=== PATIENT | female | born 1960 | race Caucasian/White ===

== ENCOUNTER 2022-05-17 14:34 | Outpatient (CLI) | payer OTHER, SELFPAY | END 2022-05-17 14:35 | disposition home or self-care (01) | PROVIDERS: PCP Family Medicine; Visit Provider Family Medicine | DX: Z00.00 Encounter for general adult medical examination without abnormal findings (principal); E66.9 Obesity, unspecified; F41.9 Anxiety disorder, unspecified | CPT/HCPCS: 80053; 80061; 84443 ==

== ENCOUNTER 2022-05-25 12:02 | Outpatient (CLI) | payer OTHER, SELFPAY | END 2022-05-25 12:03 | disposition home or self-care (01) | PROVIDERS: PCP Family Medicine; Referring Provider Family Medicine; Visit Provider Nurse Practitioner Family | DX: R30.0 Dysuria (principal); N30.00 Acute cystitis without hematuria | CPT/HCPCS: 87086 ==

== ENCOUNTER 2023-05-13 11:01 | Outpatient (CLI) | payer OTHER, SELFPAY | END 2023-05-13 11:02 | disposition home or self-care (01) | LOC: NFLDREF 05-22 12:36 | PROVIDERS: PCP Family Medicine; Referring Provider Family Medicine; Visit Provider Family Medicine | DX: R39.89 Other symptoms and signs involving the genitourinary system (principal); N39.0 Urinary tract infection, site not specified; N89.8 Other specified noninflammatory disorders of vagina | CPT/HCPCS: 87086; 87186 ==

== ENCOUNTER 2024-06-08 20:18 | Emergency (ER) | payer OTHER, SELFPAY ==
--- NOTE | 2024-06-08 20:19 | ED.GENADULT ---
HPI - General Adult General Chief complaint: Fall/Minor Trauma Stated complaint: Tripped and fell, hurt nose Time Seen by Provider: 06/08/24 20:18 History of Present Illness HPI narrative: tripped over dog in street and landed on L hand, L knee and nose. complaints of nose pain and swelling. on eliquis. no LOC . denies CP/SOB or n/v. denies vision changes . 64-year-old woman presenting to the emergency department with injury to her nose following trip and fall event. Apparently is babysitting her kids dogs 1 of whom does not get out of the way very well. Did stepped out to way of to some neighborhood children and ultimately tripped over the dog landing on her left knee left wrist and her face. She think she bounced. There was no loss of consciousness. Denies neck or back pain. No alcohol is involved. No loss of consciousness. Ambulating without difficulty. She did note a good deal of blood in the road she presume secondary to Eliquis. Says she has not historically liked her nose but did not wish this upon it. She is concerned it might be fractured. Says her teeth feel little bit sore in the front. Related Data Home Medications ?Medication ?Instructions ?Recorded ?Confirmed citalopram 20 mg tablet 20 mg PO QDAY 05/17/22 06/08/24 apixaban 5 mg tablet (Eliquis) 5 mg PO BID 06/08/24 06/08/24 duloxetine 40 mg capsule,delayed 40 mg PO DAILY 06/08/24 06/08/24 release Allergies Allergy/AdvReac Type Severity Reaction Status Date / Time Iodinated Diagnostic Agents Allergy Severe hot, Uncoded 05/13/23 11:09 swelling, headache, vomit Review of Systems Status of ROS: Reports: 6 or more systems reviewed and unremarkable except as noted in History and below [facility] Medical History Yeast dermatitis ?B37.2 - Candidiasis of skin and nail (ICD-10) Left otitis media ?H66.92 - Otitis media, unspecified, left ear (ICD-10) Dysuria ?R30.0 - Dysuria (ICD-10) Partial small bowel obstruction ?K56.600 - Partial intestinal obstruction, unspecified as to cause (ICD-10) History of syncope ?Z87.898 - Personal history of other specified conditions (ICD-10) History of deep venous thrombosis (2016) ?Z86.718 - Personal history of other venous thrombosis and embolism (ICD-10) Surgical History History of tonsillectomy ?Z90.89 - Acquired absence of other organs (ICD-10) History of hysterectomy ?Z90.710 - Acquired absence of both cervix and uterus (ICD-10) Family History Mother Stroke Social History Narrative: Does not use illicit drugs Nonsmoker Occasional alcohol consumption Smoking Status: Never smoker How often do you have a drink containing alcohol: never AUDIT-C Alcohol total score: 0 Non-prescribed substance use: denies use Exam Narrative: Exam Narrative: Very pleasant. NAD. Clearly her nose is bleeding over the bridge of the nose it appears slightly swollen and oozing blood. There appears to be a leftward deviation just below the bridge of the nose. No septal hematoma appreciated. No active bleeding or evidence of bleeding from inside the nose. Dentition looks to be intact. Does have a bridge behind the upper 2 central incisors. No bleeding at the gumline appreciated. No fluid external ears. Neck is supple nontender. Back nontender. Moving all extremities out difficulty. Left knee has some stippling without abrasion over the anterior knee but she is flexing extending without difficulty. There is bruising at the base of the left palm. No scaphoid/snuffbox tenderness. Has good water pump servicer strength here. Small abrasion on the 5th finger of the left hand. Cranial nerves 2-12 intact. Pupils are 3 - 4 mm and equal. GCS 15. Const: Vital Signs, click to edit/add: Vital Signs - 24 hr 06/08/24 20:23 Temperature 98.3 F Pulse Rate [Pulse Oximeter] 96 Respiratory Rate 16 Blood Pressure [Ri ght Upper Arm] 148/76 H Pulse Oximetry 98 Oxygen Delivery Me thod Room Air Documenting provider has reviewed patient's vital signs: yes Course Vital Signs Vital signs: Initial Vital Signs Temperature 98.3 F 06/08/24 20:23 Temperature Source Temporal Artery Scan 06/08/24 20:23 Pulse Rate 96 06/08/24 20:23 Respiratory Rate 16 06/08/24 20:23 Blood Pressure 148/76 H 06/08/24 20:23 Blood Pressure Mean 100 06/08/24 20:23 Blood Pressure Position Sitting 06/08/24 20:23 Pulse Oximetry 98 06/08/24 20:23 Oxygen Delivery Method Room Air 06/08/24 20:23 Vital Signs Temperature 98.3 F 06/08/24 20:23 Pulse Rate 96 06/08/24 20:23 Respiratory Rate 16 06/08/24 20:23 Blood Pressure 148/76 H 06/08/24 20:23 Pulse Oximetry 98 06/08/24 20:23 Oxygen Delivery Method Room Air 06/08/24 20:23 Temperature 98.3 F 06/08/24 20:23 Pulse Rate 70 06/08/24 21:51 Respiratory Rate 16 06/08/24 21:51 Blood Pressure 127/72 06/08/24 21:51 Pulse Oximetry 98 06/08/24 21:51 Oxygen Delivery Method Room Air 06/08/24 20:23 Medications Administered Medications: Discontinued Medications Generic Name Dose Route Start Last Admin Trade Name Freq PRN Reason Stop Dose Admin Ibuprofen 600 mg 06/08/24 20:39 06/08/24 20:47 Ibuprofen 400 Mg Tablet PO 06/08/24 20:40 600 mg ONCE ONE Administration Medical Decision Making MDM Narrative Medical decision making narrative: If was not on Eliquis I think could avoid imaging beyond maybe basic nasal bone x-rays. In this case would be prudent to CT head and will do facial bones/sinuses at the same time. Will give singular dose of ibuprofen. Ice pack. By nexus criteria does not need neck imaging. By my independent review CT of head and CT of face look to be without any acute abnormality beyond multiple fractures of the nasal bones, comminuted with some rightward displacement INDICATION: Fall, nasal bone trauma. TECHNIQUE: Noncontrast CT of the head with multiplanar reconstruction utilizing bone and soft tissue algorithms. COMPARISON: None available. FINDINGS: No acute intracranial hemorrhage. The cervantes-white matter interface is preserved. The ventricles are normal in size. No abnormal extra-axial fluid collection is identified. Multiple minimally displaced nasal bone fractures. Symmetric globes. The imaged paranasal sinuses and mastoid air cells are clear. IMPRESSION: 1. No acute intracranial abnormality. 2. Multiple minimally displaced nasal bone fractures. Please note that all CT scans at this facility use dose modulation, iterative reconstruction, and/or weight-based dosing when appropriate to reduce radiation dose to as low as reasonably achievable. Dictated by Damon Espino MD @ 06/08/2024 9:42:40 PM Indication: Fall. Technique: Noncontrast CT of the facial bones with multiplanar reconstruction utilizing bone and soft tissue algorithms. Comparison: None available. Findings: Multiple minimally displaced nasal bone fractures. Symmetric globes without evidence of penetrating injury. Small left frontal sinus osteoma. Otherwise, clear paranasal sinuses. The imaged upper cervical soft tissues appear within limits. Intracranial findings are reported on concurrently performed CT head. Impression: Multiple minimally displaced nasal bone fractures. Please note that all CT scans at this facility use dose modulation, iterative reconstruction, and/or weight-based dosing when appropriate to reduce radiation dose to as low as reasonably achievable. Dictated by Damon Espino MD @ 06/08/2024 9:45:30 PM Discussed potential improvement/correction of this mild displacement. No saddle deformity, no impingement on breathing but I think cosmetically would be beneficial. She agrees to proceed with some reduction of these fractures. I apply pressure to the bridge of the nose and leftward pressure does result in improved alignment. Tolerated this well. Sienna noted improvement in how it felt. Tolerated this well. Has not demonstrated signs of concussion here. But may need to monitor for this. See patient discharge plan for further discussion Yes, I would say your nose looks a little straighter now. Would ice your nose a few times daily over the next few days. Since opiates have caused headaches for you before, as discussed, perhaps tramadol would be better tolerated. Prescribing some from [facility]. After icing and a little time, perhaps in a week and half to 2 weeks, consider follow up with Dr. Mondragon. Medical Records Medical records reviewed: Yes I reviewed the patient's medical records Discharge Plan Discharge Clinical Impression: Fracture of nasal bone, Abrasion, Closed head injury Patient Disposition: Home w/ Parent or Adult Condition: Improved Additional Instructions: Yes, I would say your nose looks a little straighter now. Would ice your nose a few times daily over the next few days. Since opiates have caused headaches for you before, as discussed, perhaps tramadol would be better tolerated. Prescribing some from [facility]. After icing and a little time, perhaps in a week and half to 2 weeks, consider follow up with Dr. Mondragon. Prescriptions: No Action citalopram 20 mg tablet 20 mg PO QDAY Eliquis 5 mg tablet 5 mg PO BID duloxetine 40 mg capsule,delayed release(DR/EC) 40 mg PO DAILY Follow Up/Referrals: Provider,Not a Local [Primary Care Provider] - Stand Alone Forms: Are You a Human Info Instructions
--- OUTSIDE RECORDS SUMMARY | 2024-06-08 20:20 | XMS_ITS | Encounter Summary ---
Author Organization [facility] Address [address] [place] [phone] Care Team Providers Care Security Officer Name Role Phone Hanane Childers APRN, C.N.P., D.N.P. Primary Care Provider Encounter Details Date Type Department Care Team (Late st Contact Info) Description 05/14/2024 10:30 AM CONTINUOUS DRIER OPERATOR E-Visit [facility] [address] [place] [phone] Caty Cornelius APRN, C.N.P. [address] [place] [phone] Express Care Online for Sinus Symptoms (sinusitis) Social History Tobacco Use Types Packs/Day Years Used Date Smoking Tobacco: Never Smokeless Tobacco: Never Alcohol Use Standard Drinks/Week Comments Not Currently 0 (1 standard drink = 0.6 oz pure alcohol) 1 a month at most. Very occasional [facility] Utilities Answer Date Recorded In the past 12 months has e [employer], gas, oil, or water [employer] threatened to shut off services in your home? No 03/28/2023 Humiliation, Afraid, Rape, and Kick questionnair e Answer Date Recorded Within the last year, have y ou been afraid of your partner or ex-partner? No 03/23/2022 Within the last year, have y ou been humiliated or emotionally abused in other ways by your partner or ex-partner? No Within the last year, have y ou been kicked, hit, slapped, or otherwise physically hurt by your partner or ex-partner? No 03/23/2022 Within the last year, have y ou been raped or forced to have any kind of sexual activity by your partner or ex-partner? No 03/23/2022 Social Connection and Isolat ion Panel [NHANES] Answer Date Recorded In a typical week, how many times do you talk on the phone with family, friends, or neighbors? More than three times a week 03/23/2022 How often do you get togethe r with friends or relatives? Once a week 03/23/2022 How often do you attend chur or voodoo services? More than 4 times per year 03/23/2022 Do you belong to any clubs o r organizations such as latter-day groups, unions, fraternal or athletic groups, or school groups? Yes 03/23/2022 How often do you attend meet ings of the clubs or organizations you belong to? More than 4 times per year 03/23/2022 Are you , , di vorced, , never , or living with a partner? 03/23/2022 AUDIT-C Answer Date Recorded Q1: How often do you have a drink containing alc ohol? Monthly or less 03/23/2022 Q2: How many drinks containi ng alcohol do you have on a typical day when you are drinking? 1 or 2 03/23/2022 Q3: How often do you have si x or more drinks on one occasion? Never 03/23/2022 Overall Financial Resource Strain (CARDIA) Answe r Date Recorded How hard is it for you to pa y for the very basics like food, housing, medical care, and heating? Not hard at all 03/23/2022 PHQ-2 Answer Date Recorded PHQ-2 Score 0 04/08/2024 [facility] Occupat ional Health - Occupational Stress Questionnaire Answer Date Recorded Do you feel stress - tense, restless, nervous, or anxious, or unable to sleep at night because your mind is troubled all the time - these days? Only a little 03/23/2022 Exercise Vital Sign Answer Date Recorde d On average, how many days pe r week do you engage in moderate to strenuous exercise (like a brisk walk)? 2 days 03/28/2023 On average, how many minutes do you engage in exercise at this level? 20 min 03/28/2023 Hunger Vital Sign Answer Date Recorded Within the past 12 months, y ou worried that your food would run out before you got the money to buy more. Never true 03/28/19 24 Within the past 12 months, t he food you bought just didn't last and you didn't have money to get more. Never true 03/28/2023 PRAPARE - Transportation Answer Date Re corded In the past 12 months, has l ack of transportation kept you from medical appointments or from getting medications? No 03/18 In the past 12 months, has l ack of transportation kept you from meetings, work, or from getting things needed for daily living? No 03/28/2023 Depression Answer Date Recor ded PHQ-9 Total Score (max 27) 0 04/08 Nutrition Answer Date Recorded On average, how many serving s of fruits and vegetables do you eat per day (serving size is equal to 1 cup or approximately the size of a tennis ball)? 3-5 03/28/2023 Dental Answer Date Recorded Dental: Regular Dentist Yes 03/23/19 Employment Answer Date Recorded Employment status Employed and actively working without restrictions 03/28/2023 Housing Stability Answer Date Recorded What is your living situation today? [facility] 03/28/2023 Education Answer Date Recorded What is the highest level of school you have completed or the highest degree you have received? Master's degree (e.g., MA, MS, Gold, MEd, PHOTOGRAPHIC EDITOR, [employer]) 11/11/2018 Comments No Sex and Gender Information Value Date Recorded Sex Assigned at Female 08/28/2017 2:20 PM CDT Legal Sex Female 1:22 PM CONTINUOUS DRIER OPERATOR Gender Identity Female 08/28/2017 2:20 PM CDT Sexual Orientation Straight 08/28/2017 2: 20 PM CDT documented as of this encounter Plan of Treatment Upcoming Encounters Date Type Department Care Team (Late st Contact Info) Description 07/24/2024 2:30 PM CDT Procedure visit Division of [facility], [facility], in [place], [place] [address] [place] [phone] Lenard Brock M.D. [address] [place] [phone] documented as of this encounter Visit Diagnoses Diagnosis Sinusitis Acute- Primary documented in this encounter Additional Health Concerns Assessment Noted Time PHQ-9 Depression Total Score: 0 04/08/19 25 8:35 PM CONTINUOUS DRIER OPERATOR documented as of this encounter Care Teams Security Officer Relationship Specialty Start Date End Date Hanane Childers APRN, C.N.P., D.N.P. [address] [place] [phone] PCP - General Family Medicine 10/19/19 documented as of this encounter
--- OUTSIDE RECORDS SUMMARY | 2024-06-08 20:20 | XMS_ITS | Encounter Summary ---
Author Organization [facility] Address [address] [place] [address] Care Team Providers Care Film Developing Machine Operator Name Role Phone Hanane Childers APRN, C.N.P., D.N.P. Primary Care Provider Encounter Details Date Type Department Care Team (Late st Contact Info) Description 04/29/2018 [facility] [address] [place] [address] Ja Mondragon M.D. [address] [place] [phone] Reflux Esophageal (Primary Dx) Social History Tobacco Use Types Packs/Day Years Used Date Smoking Tobacco: Never Smokeless Tobacco: Never Comments No Sex and Gender Information Value Date Recorded Sex Assigned at Female 08/28/2017 2:20 PM CDT Legal Sex Female 1:22 PM ADOPTION AGENT Gender Identity Female 08/28/2017 2:20 PM CDT Sexual Orientation Straight 08/28/2017 2: 20 PM CDT documented as of this encounter Plan of Treatment Upcoming Encounters Date Type Department Care Team (Late st Contact Info) Description 07/24/2024 2:30 PM CDT Procedure visit Division of [facility], [facility], in [place], [place] [address] [place] [phone] Lenard Brock M.D. [address] [place] [phone] documented as of this encounter Visit Diagnoses Diagnosis Reflux Esophageal- Primary documented in this encounter Additional Health Concerns Infection Onset Date Last Indicated Resolved Time COVID19 Pending 02/03/2020 02/03/2020 02/04/2020 8 :55 AM ADOPTION AGENT COVID19 Pending 02/11/2020 02/11/2020 02/12/2020 5 :06 PM ADOPTION AGENT Assessment Noted Time PHQ-9 Depression Total Score: 2 12/22/19 17 11:01 AM CDT documented as of this encounter Care Teams Film Developing Machine Operator Relationship Specialty Start Date End Date Hanane Childers APRN, C.N.P., D.N.P. [address] [place] [phone] PCP - General Family Medicine 10/19/19 documented as of this encounter
--- OUTSIDE RECORDS SUMMARY | 2024-06-08 20:20 | XMS_ITS | Encounter Summary ---
Author Organization [facility] Address [address] [place] [address] Care Team Providers Care Ux Architect Name Role Phone Hanane Childers APRN, C.N.P., D.N.P. Primary Care Provider Encounter Details Date Type Department Care Team (Late st Contact Info) Description 04/04/2004 Historical Ophthalmology [facility] Matt Ceballos M.D. [address] [phone] Social History Tobacco Use Types Packs/Day Years Used Date Smoking Tobacco: Never Assessed Comments Unknown Sex and Gender Information Value Date Recorded Sex Assigned at Female 08/28/2017 2:20 PM CDT Legal Sex Female 1:22 PM ELECTRIC MOTOR MECHANIC Gender Identity Female 08/28/2017 2:20 PM CDT Sexual Orientation Straight 08/28/2017 2: 20 PM CDT documented as of this encounter Progress Notes * Matt Ceballos M.D. - 04/04/2004 12:00 AM [facility]ST Eye General CHIEF COMPLAINT Red and puffy right upper lid HISTORY OF PRESENT ILLNESS Saturday morning pt had stye like infection. It was red and puffy right upper lid for 2 days. Pain right eye. No discharge. Some blurred vision. Was seen at [facility] and told it was a tear duct infection. She tried warm packs intermittently for one day and actually improved. IMPRESSION / REPORT / PLAN #1 Hordeolum, left upper lid #2 ? early preseptal cellulitis, left upper There is possible early preseptal cellulitis, however there is no canalicular involvement. Plan: recommend warm compresses at least tid and more if possilbe. Will give ees dov bid to eye lid. Augmentin 500 mg po tid x 10 days. Use artificial tears prn. Will see pt back in 3 days to ensure improvement. DIAGNOSIS #1 Hordeolum, left upper lid #2 ? early preseptal cellulitis, left upper CDM Reports - EYEGEN Id: [id number] Status: Fnl documented in this encounter Plan of Treatment Upcoming Encounters Date Type Department Care Team (Late st Contact Info) Description 07/24/2024 2:30 PM CDT Procedure visit Division of [facility] Internal [facility], [facility], in [place], [place] [address] [place] [phone] Lneard Brock M.D. [address] [place] [phone] documented as of this encounter Visit Diagnoses Not on filedocumented in this encounter Additional Health Concerns Infection Onset Date Last Indicated Resolved Time COVID19 Pending 02/03/2020 02/03/2020 02/04/2020 8 :55 AM ELECTRIC MOTOR MECHANIC COVID19 Pending 02/11/2020 02/11/2020 02/12/2020 5 :06 PM ELECTRIC MOTOR MECHANIC documented as of this encounter Care Teams Ux Architect Relationship Specialty Start Date End Date Hanane Childers APRN, C.N.P., D.N.P. [address] [place] [phone] PCP - General Family Medicine 10/19/19 documented as of this encounter
--- OUTSIDE RECORDS SUMMARY | 2024-06-08 20:20 | XMS_ITS | Clinical Summary ---
Author Organization [facility] Address [address] [place] [address] Care Team Providers Care Musical Instrument Supervisor Name Role Phone Hanane Childers APRN, C.N.P., D.N.P. Primary Care Provider Source Comments Patient records contain information from all sites at [facility]. For routine questions regarding patient records, call [phone] during business hours, M-F 8:00 AM - 5:00 PM Central Time. Record requests for emergency care only can be directed to [phone] at any time.[facility] Allergies Active Allergy Reactions Criticality Noted Date Comments Adhesive Tape-Silicones Other (see comments) Sensitivity Iodinated Contrast Media Nausea And Vomiting Medications * This document contains information received from the source organization and may not represent a complete record from that organization. VITAMIN B COMPLEX ORAL Take 1 tablet by mouth every evening. 3 Active estradioL (ESTRACE) 0.1 mg/g (0.01%) vaginal cream Insert 2 g into the vagina at bedtime 2 (two) times a week. 85 g 3 11/27/2023 6:09 PM CDT 4 Active apixaban (ELIQUIS) 5 mg tablet Take 1 tablet (5 mg total) by mouth 2 (two) times a day. 180 tablet 3 06/05/2024 8:04 AM CDT 4 09/04/19 25 Active DME Gradient compression garments & suppliesIndicati ons:Thrombosis Deep Vein Personal History DME Order 2 Unspecified 3 4 Active busPIRone (BuSpar) 5 mg tabletIndication s:Depression Take 2 tablets (10 mg total) by mouth 2 (two) times a day. 360 tablet 3 06/05/2024 8:04 AM CDT 4 Active DULoxetine (Cymbalta) 40 mg capsule,delayed release(DR/EC) DR capsuleIndicatio ns:Depression Take 1 capsule (40 mg total) by mouth daily. 90 capsule 3 04/10/2024 11:38 AM LAND AGENT 5 Active amoxicillin-pot clavulanate (Augmentin) 875-125 mg per tabletIndication s:Sinusitis Acute Take 1 tablet by mouth 2 (two) times a day for 5 days. 10 tablet 5 05/20/19 25 Active Problems Problem Noted Date Diagnosed Date Hypotension Orthostatic 01/30/2024 Overweight Body Mass Index 25-29.9 Adult 024 Assessment & Plan (04/09/2024 10:20 AM LAND AGENT): General Health Maintenance Positive lifestyle changes including portion control, reducing caloric intake from beverages, and incorporating physical activity. Joined a wellness physical activity class focusing on long-term sustainable weight loss and overall health improvement. Discussed benefits of smaller portion sizes and reducing high-calorie beverages. - Continue portion control and dietary modifications - Continue participation in wellness physical activity class - Encourage regular exercise and cardiovascular activities Depression 11/14/2023 Assessment & Plan (04/09/2024 10:20 AM LAND AGENT): Major Depressive Disorder Significant improvement in mood and emotional regulation since adjusting Cymbalta to 40 mg in the morning. Less irritation, stress, and renewed sense of paco. No adverse effects noted, improved sleep quality. Continued use of Buspar with minor adjustments to avoid nighttime doses to prevent sleep disturbances. Discussed the importance of vacations for mental health benefits. Missing one or two doses of Buspar occasionally will not cause harm. - Continue Cymbalta 40 mg in the morning - Continue Buspar with current dosing schedule (morning, lunch, and early evening) - Switch Cymbalta prescription to 90-day supply with mail order - Advise to reach out if there are any major changes in symptoms Orders: Family Medicine office visit (clinic) DULoxetine (Cymbalta) 40 mg capsule,delayed release(DR/EC) DR capsule; Take 1 capsule (40 mg total) by mouth daily. Polyp Colon 05/27/2023 Overview (05/27/2023): 05/2023 #1 Three greater than 1-cm sessile serrated adenomas resected from the right colon in September of 2022 with a negative followup exam in May of 2023 PLAN: Given that she had 3 significant sessile serrated adenomas within the right colon, one must question if she is evolving into serrated polyposis syndrome. She does not fulfill criterion at this time since she has only had 3 polyps, but it is worrisome that all of these were over a centimeter in size. Because of that, I think a followup examination in 2 years would be recommended to reassess the colonic surface. At that time, if 2 or more sessile serrated adenomas were noted irregardless of size, then she would be followed as if she had serrated polyposis syndrome. If she does not reveal significant neoplasia at that time, then backing her out to a period of 3 years would seem reasonable. (Per GI econsult) Syncope 08/23/2017 Overview (08/23/2017): Added automatically from request for surgery [id number] Thrombosis Deep Vein Personal History 05/24/2015 Atrial Fibrillation Personal History 02/14/2015 Mutation Factor V Leiden Heterozygous 12/16/2012 Encounters Date Type Department Care Team Description 05/14/2024 10:30 AM LAND AGENT E-Visit [facility] [address] [place] [address] Caty Cornelius APRN, C.N.P. Express Care Online for Sinus Symptoms (sinusitis) 04/09/2024 10:00 AM LAND AGENT Telemedicine Department of Family Medicine, [facility], in [place], [place] [address] [place] [address] Brody Martin M.D., M.S. Overweight Body Mass Index 25-29.9 Adult (Primary Dx); Depression from Last 3 Months Immunizations Immunization Administration Dates Next Due DTP 10/16/1966, 1,1960,1960 H1N1 Inj 02/04/2009 HepB Adult 08/16/1994,04/18/1994,02/15/1994 HepB, Unspecified 08/16/1994,04/18/1994,02/15/19 94 Influenza Split Preservative Free ID 12/20/2011, 12/15/2010 Influenza, Seasonal, Injectable 01/23/20 06,01/18/2005,01/18/2003,2001,01/22/2001 OPV 1960,1960 Polio, Unspecified 1960,1960 RZV (SHINGRIX) 09/26/2023,05/28/2023 SARS-COV-2 (COVID-19) - MODE RNA (12 YEARS AND OLDER) Fall Seasonal 01/02/2024,05/28/2023(Deferred: Patient decision) SARS-COV-2 (COVID-19) - MODERNA(Discontinued) 02/22/2021,06/17/2020,05/18/2020 Td (Adult), adsorbed 09/21/2002,03/18/1991 Td Preservative Free (TENIVA C, DECAVAC) 03/01/2017 Tdap 01/22/2006 influenza trivalent vaccine (6 months and older)(PF) 01/02/2024,02/01/2010,02/04/2009 influenza vaccine quad (FLUZONE/FLUARIX) (6 months and older)(PF) 01/01/2023,12/21/2021,01/03/2021,2019,01/19/2019,01/08/2018,01/03/2015,1 Family History Medical History Relation Name Comments Liver disease Father Brennan Mauro Age 81 Arthritis Mother Sandy Zunilda Hypertension Mother Sandy Mauro Rheum arthritis Mother Sandy Mauro Transient ischemic attack Mother Sandy Mauro At age 75 Breast cancer Paternal Grandmother Silvina Zunilda Age 6 5 Breast cancer Sister Ryann Taveras Age 64 Relation Name Status Comments Father Brennan [place] Mother Sandy [place] Paternal Grandmother Silvina [place] Sister Ryann Taveras Social History Tobacco Use Types Packs/Day Years Used Date Smoking Tobacco: Never Smokeless Tobacco: Never Tobacco Cessation:Counseling Given: Not Answered Alcohol Use Standard Drinks/Week Comments Not Currently 0 (1 standard drink = 0.6 oz pure alcohol) 1 a month at most. Very occasional [facility] Utilities Answer Date Recorded In the past 12 months has e [employer], gas, oil, or water [employer] threatened to shut off services in your [...] week 03/23/2022 How often do you attend [facility] or hinduism services? More than 4 times per year 03/23/2022 Do you belong to any clubs o r organizations such as jew groups, unions, fraternal or athletic groups, or [...] Answer Date Recorded PHQ-2 Score 0 04/08/2024 [facility] of Occupat ional [facility] - Occupational Stress Questionnaire Answer Date Recorded [...] your living situation today? I have a [place] place to live 03/28/2023 Education Answer Date Recorded What is the highest level of school you have completed or the highest degree you have received? Master's degree (e.g., MA, MS, Gold, MEd, [employer], [employer]) 11/11/2018 Comments No Sex and Gender Information Value Date Recorded Sex Assigned at Female 08/28/2017 2:20 PM CDT Legal Sex Female 1:22 PM LAND AGENT Gender Identity Female 08/28/2017 2:20 PM CDT Sexual Orientation Straight 08/28/2017 2: 20 PM CDT Last Filed Vital Signs Vital Sign Reading Time Taken Comments Blood Pressure 119/74 05/28/2023 12:49 PM CDT Pulse 74 05/28/2023 12:49 PM CDT Temperature 36.5 C (97.7 F) 05/20/2023 1:40 PM LAND AGENT Respiratory Rate 11 05/20/2023 2:00 PM LAND AGENT Oxygen Saturation 98% 05/20/2023 2:00 PM LAND AGENT Inhaled Oxygen Concentration - - Weight 86.4 kg (190 lb 9.4 oz) 05/28/2023 12:49 PM CDT Height 170.2 cm (5' 7.01) 05/28/2023 12:49 PM C DT Body Mass Index 29.84 05/28/2023 12:49 PM CDT Plan of Treatment Upcoming Encounters Date Type Department Care Team (Late st Contact Info) Description 07/24/2024 2:30 PM CDT Procedure visit Division of Community Internal Medicine, [facility], in [place], [place] [address] [place] [phone] Lenard Brock M.D. [address] [place] [address] Health Maintenance Due Date Last Done Comments HIV Screening 1960 Hepatitis C Screening 1960 IPV Vaccines (3 of 3 - 4-dos e series) 1964 1960, 1960, 1960, Additional history exists Pneumococcal vaccine (50+ ye ars) (1 of 1 - PCV) 2010 CT Colonography 08/25/2017 08/25/2012 Depression Screening (Annual PHQ-2) 03/18/2024 Mammogram 07/03/2024 07/04/2023, 03/0 09/2022, 01/19/2021, Additional history exists Colonoscopy 05/19/2025 05/20/2023, 03/0 06/2023, 09/24/2022, Additional history exists Colorectal Cancer Surveillance 05/19/2025 Cologuard 09/05/2025 09/05/2022, 06/02/2018 Lipid (Cholesterol) Screening 01/19/2026, 02/18/2015, 01/05/2015 Fasting Glucose for Diabetes Screening 01/20/2027 01/21/2024, 01/19/2021, 08/21/2017, Additional history exists DTaP,Tdap,and Td Vaccines (7 - Td or Tdap) 03/01/2027 03/01/2017, 01/22/2006, 09/21/2002, Additional history exists Hepatitis B Vaccines Completed 08/16/1994, 08/16/1994, 04/18/1994, Additional history exists Colonoscopy After Positive Cologuard Discontinued 05/20/2023 Zoster Vaccines Completed 09/26/2023, 05/28/2023 COVID-19 Vaccine Completed 01/02/2024, 03/2021, 02/22/2021, Additional history exists Influenza Vaccine Completed 01/02/2024, , 12/21/2021, Additional history exists Medical Devices Implanted Type Area Vessel Welder Device Identifier Shelf Expiration Date Model / Serial / Lot Coil Annemarie 35-14-6 - Bender [id number] Implanted:Qty: 2 on 02/19/2005 Embolization Coil [employer] Description:Device Manufactu rer - [employer] Device Status Text - [id number]. Align Sling Retropubic - Bender [id number] Implanted:Qty: 1 on 12/17/2012 Urogenital Implant Other/Legacy - See Implant Description [employer]ard Description:Device Manufactu rer - [employer] Patient Care Division. Body Location - Other. Not Applicable. Device Status Text - [id number]. Procedures Procedure Name Priority Date/Time Associated Diagnosis Comments GLUCOSE, FASTING, S/P Routine 01/21/2024 11:43 AM LAND AGENT Screening Examination Diabetes Mellitus BI BREAST SCREENING BILATERAL WITH TOMOSYNTHESIS RAD - Routine (most inpatients and all outpatients) 07/04/2023 9:15 AM CDT Screening Mammogram Breast Cancer COLONOSCOPY Routine 05/20/2023 1:04 PM LAND AGENT Polyp Colon Adenomatous Personal History COLOGUARD Routine 09/05/2022 7:30 PM CDT Screening Cancer Colon LIPID PANEL, S Routine 01/19/2021 9:03 AM CDT Screening Lipid CT COLONOGRAPHY SCREENING WITHOUT IV CONTRAST Routine 08/25/2012 3:23 PM CDT from Last 3 Months or Most Recently Relevant to Health Maintenance Results * Glucose, Fasting (01/21/2024 11:43 AM LAND AGENT) Glucose, P 99 70 - 100 mg/dL 01/21/2024 12:30 PM LAND AGENT DTL Last Intake 16 hr 01/21/2024 12:14 PM LAND AGENT DTL Blood (Blood, Venous) 01/21/2024 11:43 AM LAND AGENT 01/21/2024 12:13 PM LAND AGENT Hanane Childers APRN, C.N.P., D.N.P. LAB BLOO D NON ADD-ON Final Result [facility] [place] [address] [place] [address], [facility] DTL [facility] [address] [place] [address] * BI Breast Screening Bilateral with Tomosynthesis (07/04/2023 9:15 AM CDT) Anatomical Region Laterality Modality Breast, Breast Imaging RST L OS, Breast Imaging ARZ LOS, Breast Imaging FLA LOS Bilateral Mammography Impressions 07/04/2023 12:18 PM CDT Negative. RECOMMENDATION: Annual Screening Mammogram ASSESSMENT: BI-RADS: 1: Negative. Narrative 07/04/2023 12:18 PM CDT EXAM: BI BREAST SCREENING BILATERAL WITH TOMOSYNTHESIS Current study was evaluated with a Computer Aided Detection (CAD) system. INDICATION: Screening mammogram. COMPARISON: Prior exam(s) were available and reviewed for comparison. DENSITY: b. There are scattered areas of fibroglandular density. FINDINGS: No findings of malignancy. No significant change since prior exam. Procedure Note Asad Mcginnis M.D. - 07/04/2023 EXAM: BI BREAST SCREENING BILATERAL WITH TOMOSYNTHESIS Current study was evaluated with a Computer Aided Detection (CAD) system. INDICATION: Screening mammogram. COMPARISON: Prior exam(s) were available and reviewed for comparison. DENSITY: b. There are scattered areas of fibroglandular density. FINDINGS: No findings of malignancy. No significant change since priorexam. IMPRESSION: Negative. RECOMMENDATION: Annual Screening Mammogram ASSESSMENT: BI-RADS: 1: Negative. Hanane Childers APRN, C.N.P., D.N.P. [facility] BI P ROCEDURES Final Result * (ABNORMAL) Cologuard - Sent Out Lab (09/05/2022 7:30 PM CDT) Result Positive( A) Negative 09/17/2022 4:49 PM CDT EXLI Comment: POSITIVE TEST RESULT. A positive Cologuard result should be followed with a colonoscopy or visual examination of the colon. The normal value (reference range) for this assay is negative. TEST DESCRIPTION: Composite algorithmic analysis of stool DNA-biomarkers with hemoglobin immunoassay. Quantitative values of individual biomarkers are not reportable and are not associated with individual biomarker result reference ranges. Cologuard is intended for colorectal cancer screening of adults of either sex, 45 years or older, who are at average-risk for colorectal cancer (CRC). Cologuard has been approved for use by the U.S. FDA. The performance of Cologuard was established in a cross sectional study of average-risk adults aged 50-84. Cologuard performance in patients ages 45 to 49 years was estimated by sub-group analysis of near-age groups. Colonoscopies performed for a positive result may find as the most clinically significant lesion: colorectal cancer [4.0%], advanced adenoma (including sessile serrated polyps greater than or equal to 1cm diameter) [20%] or non- advanced adenoma [31%]; or no colorectal neoplasia [45%]. These estimates are derived from a prospective cross-sectional screening study of 10,000 individuals at average risk for colorectal cancer who were screened with both Cologuard and colonoscopy. (Fariha Lake et al, N Engl J Med 2014;370(14):8615-2873.) Cologuard may produce a false negative or false positive result (no colorectal cancer or precancerous polyp present at colonoscopy follow up). A negative Cologuard test result does not guarantee the absence of CRC or advanced adenoma (pre-cancer). The current Cologuard screening interval is every 3 years. ([place] Cancer Society and U.S. Multi-Society Task Force). Cologuard performance data in a 10,000 patient pivotal study using colonoscopy as the reference method can be accessed at the following location: www.SimpleMist/results. Additional description of the Cologuard test process, warnings and precautions can be found at www.[email or web address].com. Stool (Stool) 09/05/2022 7:3 0 PM CDT 09/07/2022 7:35 PM CDT Sahara Lilly APRN, C.N .P., D.N.P. LAB BODY FLUIDS AND STOOLS ORDERABLES Final Result [facility] [address] [place] [address] [email or web address] [address], [address] [place] [address] * (ABNORMAL) Lipid Panel (01/19/2021 9:03 AM CDT) Cholesterol, Total 216(H) mg/dL 2020 10:03 AM CDT DTL Comment: ----REFERENCE VALUE---- Desirable: < 200 Borderline high: 200 - 239 High: > or = 240 Triglycerides 136 mg/dL 01/19/2021 10:03 AM CDT DTL Comment: ----REFERENCE VALUE---- Normal: <150 Borderline high: 150-199 High: 200-499 Very high: > or =500 Cholesterol, HDL, S 59 >=50 mg/dL 01/19/2021 10:03 AM CDT DTL Calculated LDL 130(H) mg/dL 01/19/2021 10:03 AM CDT DTL Comment: ----REFERENCE VALUE---- Desirable: <100 mg/dL Above Desirable: 100-129 mg/dL Borderline High: 130-159 mg/dL High: 160-189 mg/dL Very High: >=190 mg/dL Cholesterol, Non-HDL, Calculated 157 mg/dL 01/19/2021 10:03 AM CDT DTL Comment: ----REFERENCE VALUE---- Desirable: <130 Above Desirable: 130-159 Borderline high: 160-189 High: 190-219 Very high: > or =220 Blood (Blood, Venous) 01/19/2021 9:03 AM CDT 01/19/2021 9:40 AM CDT Hanane Childers APRN, C.N.P., D.N.P. LAB BLOO D ADD[place] [address], [facility] [address] [place] [address] * CT Colonography Screening without IV Contrast (08/25/2012 3:23 PM CDT) Anatomical Region Laterality Modality Abdomen, Pelvis N/A Computed Tomogra phy 08/25/2012 3:23 PM CDT Narrative 08/27/2012 11:45 AM CDT 25-Aug-2012 15:23:00 Exam: CT Colonography, Screening Indications: Screening Ca Colon ORIGINAL REPORT - 27-Aug-2012 11:45:00 CT COLONOGRAPHY: COLONIC FINDINGS: Colon is NEGATIVE for polyp or mass. EXTRACOLONIC FINDINGS: IUD in the uterus. Surgical clips in the right inguinal region.TECHNIQUE: CT abdomen and pelvis in supine and prone positions. Preparation: Satisfactory Dose: Low IV contrast material: Not administered Glucagon: 1mg administered subcutaneously Complications: None. [id number] Omnipaque 140, 50 milliliter Glucagon, 1 milligram Electronically signed by: Rogelio Cox MD. [id number] 27-Aug-2012 11:45 Procedure Note Imani Cox M.D. - 06/15/2017 25-Aug-2012 15:23:00 Exam: CT Colonography, Screening Indications: Screening Ca Colon ORIGINAL REPORT - 27-Aug-2012 11:45:00 CT COLONOGRAPHY: COLONIC FINDINGS: Colon is NEGATIVE for polyp or mass. EXTRACOLONIC FINDINGS: IUD in the uterus. Surgical clips in the rightinguinal region.TECHNIQUE: CT abdomen and pelvis in supine and prone positions. Preparation: Satisfactory Dose: Low IV contrast material: Not administered Glucagon: 1mg administered subcutaneously Complications: None. SR999 Omnipaque 140, 50 milliliter Glucagon, 1 milligram Electronically signed by: Rogelio Cox MD. [id number] 27-Aug-2012 11:45 Kaylyn Peña, R.N. IMG CT PROCEDURES Fi nal Result from Last 3 Months or Most Recently Relevant to Health Maintenance Insurance [employer] Care Teams Musical Instrument Supervisor Relationship Specialty Start Date End Date Hanane Childers APRN, C.N.P., D.N.P. [address] [place] [phone] PCP - General Family Medicine 10/19/19
[2024-06-08 20:23] VITALS: BP 148/76; PULSE 96; RESP 16; TEMP 36.8; O2SAT 98; BMI 28.9
--- NOTE | 2024-06-08 20:37 | CRLHL7_ITS ---
For Patients: As a result of the Century Cures Act, medical imaging exams and procedure reports are released immediately into your electronic medical record. You may view this report before your referring provider. If you have questions, please contact your health care provider. Indication: Fall. Technique: Noncontrast CT of the facial bones with multiplanar reconstruction utilizing bone and soft tissue algorithms. Comparison: None available. Findings: Multiple minimally displaced nasal bone fractures. Symmetric globes without evidence of penetrating injury. Small left frontal sinus osteoma. Otherwise, clear paranasal sinuses. The imaged upper cervical soft tissues appear within limits. Intracranial findings are reported on concurrently performed CT head. Impression: Multiple minimally displaced nasal bone fractures. Please note that all CT scans at this facility use dose modulation, iterative reconstruction, and/or weight-based dosing when appropriate to reduce radiation dose to as low as reasonably achievable. Dictated by Damon Espino MD @ 06/08/2024 9:45:30 PM (Electronically Signed)
--- NOTE | 2024-06-08 20:37 | CRLHL7_ITS ---
For Patients: As a result of the Century Cures Act, medical imaging exams and procedure reports are released immediately into your electronic medical record. You may view this report before your referring provider. If you have questions, please contact your health care provider. INDICATION: Fall, nasal bone trauma. TECHNIQUE: Noncontrast CT of the head with multiplanar reconstruction utilizing bone and soft tissue algorithms. COMPARISON: None available. FINDINGS: No acute intracranial hemorrhage. The cervantes-white matter interface is preserved. The ventricles are normal in size. No abnormal extra-axial fluid collection is identified. Multiple minimally displaced nasal bone fractures. Symmetric globes. The imaged paranasal sinuses and mastoid air cells are clear. IMPRESSION: 1. No acute intracranial abnormality. 2. Multiple minimally displaced nasal bone fractures. Please note that all CT scans at this facility use dose modulation, iterative reconstruction, and/or weight-based dosing when appropriate to reduce radiation dose to as low as reasonably achievable. Dictated by Damon Espino MD @ 06/08/2024 9:42:40 PM (Electronically Signed)
[2024-06-08] MEDS: IBUPROFEN 400 MG TABLET 600 MG PO (20:47)
--- OUTSIDE RECORDS SUMMARY | 2024-06-08 20:48 | XMS_ITS | Encounter Summary ---
Author Organization [facility] Address [address] [place] [address] Care Team Providers Care Dinkey Mechanic Name Role Phone Hanane Childers APRN, C.N.P., D.N.P. Primary Care Provider Encounter Details Date Type Department Care Team (Late st Contact Info) Description 04/04/2004 Historical Ophthalmology RST [facility] Matt Ceballos M.D. [address] [phone] Social History Tobacco Use Types Packs/Day Years Used Date Smoking Tobacco: Never Assessed Comments Unknown Sex and Gender Information Value Date Recorded Sex Assigned at Female 08/28/2017 2:20 PM CDT Legal Sex Female 1:[address] LIGHT REPAIRER HELPER Gender Identity Female 08/28/2017 2:20 PM CDT [...] discharge. Some blurred vision. Was seen at [facility] and told it was a tear duct [...] left upper CDM Reports - EYEGEN Id: [id number] Status: Fnl documented in this encounter Plan of Treatment Upcoming Encounters Date Type Department Care Team (Late st Contact Info) Description 07/24/2024 2:30 PM CDT Procedure visit Division of [facility] Internal Medicine, [facility], in [place], [place] [address] [place] [address] Lenard Brock M.D. [address] [place] [address] documented as of this encounter Visit Diagnoses Not on filedocumented in this encounter Additional Health Concerns Infection Onset Date Last Indicated Resolved Time COVID19 Pending 02/03/2020 02/03/2020 02/04/2020 8 :[address] LIGHT REPAIRER HELPER COVID19 Pending 02/11/2020 02/11/2020 02/12/2020 5 :[address] LIGHT REPAIRER HELPER documented as of this encounter Care Teams Dinkey Mechanic Relationship Specialty Start Date End Date Hanane Childers APRN, C.N.P., D.N.P. [address] [place] [phone] PCP - General Family Medicine 10/19/19 documented as of this encounter
--- OUTSIDE RECORDS SUMMARY | 2024-06-08 20:48 | XMS_ITS | Clinical Summary ---
Author Organization [facility] Address [address] [place] [address] Care Team Providers Care Legal Support Assistant Name Role Phone Hanane Childers APRN, C.N.P., D.N.P. Primary Care Provider Source Comments Patient records contain information from all sites at [facility]. For routine questions regarding patient records, call [phone] during business hours, M-F 8:00 AM - 5:00 PM Central Time. Record requests for emergency care only can be directed to [phone] at any time.[facility] Allergies Active Allergy Reactions Criticality Noted Date [...] daily. 90 capsule 3 04/10/2024 11:38 AM BAG MACHINE TENDER 5 Active amoxicillin-pot clavulanate (Augmentin) 875-125 mg per tabletIndication s:Sinusitis Acute Take 1 tablet by mouth 2 (two) times a day for 5 days. 10 tablet 5 05/20/19 25 Active Problems Problem Noted Date Diagnosed Date Hypotension Orthostatic 01/30/2024 Overweight Body Mass Index 25-29.9 Adult 024 Assessment & Plan (04/09/2024 10:20 AM BAG MACHINE TENDER): General Health Maintenance Positive lifestyle changes including [...] 11/14/2023 Assessment & Plan (04/09/2024 10:20 AM BAG MACHINE TENDER): Major Depressive Disorder Significant improvement in mood [...] (08/23/2017): Added automatically from request for surgery [id number] Thrombosis Deep Vein Personal History 05/24/2015 Atrial Fibrillation Personal History 02/14/2015 Mutation Factor V Leiden Heterozygous 12/16/2012 Encounters Date Type Department Care Team Description 05/14/2024 10:30 AM BAG MACHINE TENDER E-Visit [facility] [address] [place] [address] Caty Cornelius APRN, C.N.P. Express Care Online for Sinus Symptoms (sinusitis) 04/09/2024 10:00 AM BAG MACHINE TENDER Telemedicine Department of Family Medicine, [facility], in [place], [place] [address] [place] [address] Brody Martin M.D., M.S. Overweight Body Mass [...] 64 Relation Name Status Comments Father Brennan [place] Mother Sandy [place] Paternal Grandmother Silvina [place] Sister Ryann Taveras Social History Tobacco Use Types Packs/Day Years Used Date Smoking Tobacco: Never Smokeless Tobacco: Never Tobacco Cessation:Counseling Given: Not Answered Alcohol Use Standard Drinks/Week Comments Not Currently 0 (1 standard drink = 0.6 oz pure alcohol) 1 a month at most. Very occasional [facility] Utilities Answer Date Recorded In the past 12 months has e [employer], gas, oil, or water [email or web address] threatened to shut off services in your [...] week 03/23/2022 How often do you attend [facility] or jehovah's witness services? More than 4 times per year 03/23/2022 Do you belong to any clubs o r organizations such as rastafarian groups, unions, fraternal or athletic groups, or [...] Answer Date Recorded PHQ-2 Score 0 04/08/2024 [facility] of Occupat ional [facility] - Occupational Stress Questionnaire Answer Date [...] Master's degree (e.g., MA, MS, Gold, MEd, DENTURE PROCESSOR, TORREY) 11/11/2018 Comments No Sex and Gender Information Value Date Recorded Sex Assigned at Female 08/28/2017 2:20 PM CDT Legal Sex Female 1:22 PM BAG MACHINE TENDER Gender Identity Female 08/28/2017 2:20 PM CDT Sexual Orientation Straight 08/28/2017 2: 20 PM CDT Last Filed Vital Signs Vital Sign Reading Time Taken Comments Blood Pressure 119/74 05/28/2023 12:49 PM CDT Pulse 74 05/28/2023 12:49 PM CDT Temperature 36.5 C (97.7 F) 05/20/2023 1:40 PM BAG MACHINE TENDER Respiratory Rate 11 05/20/2023 2:00 PM BAG MACHINE TENDER Oxygen Saturation 98% 05/20/2023 2:00 PM BAG MACHINE TENDER Inhaled Oxygen Concentration - - Weight 86.4 kg (190 lb 9.4 oz) 05/28/2023 12:49 PM CDT Height 170.2 cm (5' 7.01) 05/28/2023 12:49 PM C DT Body Mass Index 29.84 05/28/2023 12:49 PM CDT Plan of Treatment Upcoming Encounters Date Type Department Care Team (Late st Contact Info) Description 07/24/2024 2:30 PM CDT Procedure visit Division of Community Internal Medicine, [facility], in [place], [place] [address] [place] [phone] Lenard Brock M.D. [address] [place] [address] Health Maintenance Due Date Last Done Comments [...] history exists Medical Devices Implanted Type Area Rn Midwife Device Identifier Shelf Expiration Date Model / Serial / Lot Coil Annemarie 35-14-6 - Bender [id number] Implanted:Qty: 2 on 02/19/2005 Embolization Coil [employer] Description:Device Manufactu rer - [employer] Device Status Text - [id number]. Align Sling Retropubic - Bender [id number] Implanted:Qty: 1 on 12/17/2012 Urogenital Implant Other/Legacy - See Implant Description DayanaBard Description:Device Manufactu rer - [employer] Patient Care Division. Body Location - Other. Not Applicable. Device Status Text - [id number]. Procedures Procedure Name Priority Date/Time Associated Diagnosis Comments GLUCOSE, FASTING, S/P Routine 01/21/2024 11:43 AM BAG MACHINE TENDER Screening Examination Diabetes Mellitus BI BREAST SCREENING BILATERAL WITH TOMOSYNTHESIS RAD - Routine (most inpatients and all outpatients) 07/04/2023 9:15 AM CDT Screening Mammogram Breast Cancer COLONOSCOPY Routine 05/20/2023 1:04 PM BAG MACHINE TENDER Polyp Colon Adenomatous Personal History COLOGUARD Routine 09/05/2022 7:30 PM CDT Screening Cancer Colon LIPID PANEL, S Routine 01/19/2021 9:03 AM CDT Screening Lipid CT COLONOGRAPHY SCREENING WITHOUT IV CONTRAST Routine 08/25/2012 3:23 PM CDT from Last 3 Months or Most Recently Relevant to Health Maintenance Results * Glucose, Fasting (01/21/2024 11:43 AM BAG MACHINE TENDER) Glucose, P 99 70 - 100 mg/dL 01/21/2024 12:30 PM BAG MACHINE TENDER DTL Last Intake 16 hr 01/21/2024 12:14 PM BAG MACHINE TENDER DTL Blood (Blood, Venous) 01/21/2024 11:43 AM BAG MACHINE TENDER 01/21/2024 12:13 PM BAG MACHINE TENDER Hanane Childers APRN, C.N.P., D.N.P. LAB BLOO D NON ADD-ON Final Result [facility] [address] [place] [address], [facility] DTL [facility] [address] [place] [address] * BI Breast Screening Bilateral with Tomosynthesis [...] 1: Negative. Hanane Childers APRN, C.N.P., D.N.P. [facility] BI P ROCEDURES Final Result * (ABNORMAL) [...] Lake et al, N Engl J Med 2014;370(14):2461-2817.) Cologuard may produce a false negative or false positive result (no colorectal cancer or precancerous polyp present at colonoscopy follow up). A negative Cologuard test result does not guarantee the absence of CRC or advanced adenoma (pre-cancer). The current Cologuard screening interval is every 3 years. ([place] [employer] Society and U.S. Multi-Society Task Force). Cologuard performance data in a 10,000 patient pivotal study using colonoscopy as the reference method can be accessed at the following location: www.[employer]/results. Additional description of the Cologuard test process, warnings and precautions can be found at www.Caarbonoguard.com. Stool (Stool) 09/05/2022 7:3 0 PM CDT 09/07/2022 7:35 PM CDT Sahara Lilly APRN, C.N .P., D.N.P. LAB BODY FLUIDS AND STOOLS ORDERABLES Final Result [facility] [address] [place] [address] [employer] [address] [facility], [address] [place] [address] * (ABNORMAL) Lipid Panel (01/19/2021 9:03 AM [...] D.N.P. LAB BLOO D ADD[place] [address], [facility] [address] [place] [address] * CT Colonography Screening without IV Contrast [...] Recently Relevant to Health Maintenance Insurance [employer] [place] [employer] Care Teams Legal Support Assistant Relationship Specialty Start Date End Date Hanane Childers APRN, C.N.P., D.N.P. [address] [place] [phone] PCP - General Family Medicine 10/19/19
--- OUTSIDE RECORDS SUMMARY | 2024-06-08 20:48 | XMS_ITS | Encounter Summary ---
Author Organization [facility] Address [address] [place] [address] Care Team Providers Care Health Systems Analyst Name Role Phone Hanane Childers APRN, C.N.P., D.N.P. Primary Care Provider Encounter Details Date Type Department Care Team (Late st Contact Info) Description 04/29/2018 [facility] [address] [place] [address] Ja Mondragon M.D. [address] [place] [phone] Reflux Esophageal (Primary Dx) Social History Tobacco Use Types Packs/Day Years Used Date Smoking Tobacco: Never Smokeless Tobacco: Never Comments No Sex and Gender Information Value Date Recorded Sex Assigned at Female 08/28/2017 2:20 PM CDT Legal Sex Female 1:22 PM STRAPPING MACHINE OPERATOR Gender Identity Female 08/28/2017 2:20 PM CDT Sexual Orientation Straight 08/28/2017 2: 20 PM CDT documented as of this encounter Plan of Treatment Upcoming Encounters Date Type Department Care Team (Late st Contact Info) Description 07/24/2024 2:30 PM CDT Procedure visit Division of [facility] Internal Medicine, [facility], in [place], [place] [address] [place] [address] Lenard Brock M.D. [address] [place] [address] documented as of this encounter Visit Diagnoses Diagnosis Reflux Esophageal- Primary documented in this encounter Additional Health Concerns Infection Onset Date Last Indicated Resolved Time COVID19 Pending 02/03/2020 02/03/2020 02/04/2020 8 :55 AM STRAPPING MACHINE OPERATOR COVID19 Pending 02/11/2020 02/11/2020 02/12/2020 5 :06 PM STRAPPING MACHINE OPERATOR Assessment Noted Time PHQ-9 Depression Total Score: 2 12/22/19 17 11:01 AM CDT documented as of this encounter Care Teams Health Systems Analyst Relationship Specialty Start Date End Date Hanane Childers APRN, C.N.P., D.N.P. [address] [place] [phone] PCP - General Family Medicine 10/19/19 documented as of this encounter
--- OUTSIDE RECORDS SUMMARY | 2024-06-08 20:48 | XMS_ITS | Encounter Summary ---
Author Organization [facility] Address [address] [place] [address] Care Team Providers Care Bed Bug Exterminator Name Role Phone Hanane Childers APRN, C.N.P., D.N.P. Primary Care Provider Encounter Details Date Type Department Care Team (Late st Contact Info) Description 05/14/2024 10:30 AM FISH HATCHERY MANAGER E-Visit [facility] Express Care [address] [place] [phone] Caty Cornelius APRN, C.N.P. [address] [place] [phone] Express Care Online for Sinus Symptoms (sinusitis) Social History Tobacco Use Types Packs/Day Years Used Date Smoking Tobacco: Never Smokeless Tobacco: Never Alcohol Use Standard Drinks/Week Comments Not Currently 0 (1 standard drink = 0.6 oz pure alcohol) 1 a month at most. Very occasional [facility] Utilities Answer Date Recorded In the past 12 months has e [employer], gas, oil, or water [employer] threatened to shut off services in your [...] How often do you attend chur or gnosticism services? More than 4 times per year 03/23/2022 Do you belong to any clubs o r organizations such as restorationist groups, unions, fraternal or athletic groups, or [...] Answer Date Recorded PHQ-2 Score 0 04/08/2024 [facility] [place] of Occupat ional Health - Occupational Stress [...] your living situation today? I have a [facility] place to live 03/28/2023 Education Answer Date Recorded What is the highest level of school you have completed or the highest degree you have received? Master's degree (e.g., MA, MS, Gold, MEd, BROILER CHEF OR COOK, TORREY) 11/11/2018 Comments No Sex and Gender Information Value Date Recorded Sex Assigned at Female 08/28/2017 2:20 PM CDT Legal Sex Female 1:22 PM FISH HATCHERY MANAGER Gender Identity Female 08/28/2017 2:20 PM CDT Sexual Orientation Straight 08/28/2017 2: 20 PM CDT documented as of this encounter Plan of Treatment Upcoming Encounters Date Type Department Care Team (Late st Contact Info) Description 07/24/2024 2:30 PM CDT Procedure visit Division of [facility] Internal Medicine, [facility], in [place], [place] [address] [place] [address] Lenard Brock M.D. [address] [place] [phone] documented as of this encounter Visit Diagnoses Diagnosis Sinusitis Acute- Primary documented in this encounter Additional Health Concerns Assessment Noted Time PHQ-9 Depression Total Score: 0 04/08/19 25 8:35 PM FISH HATCHERY MANAGER documented as of this encounter Care Teams Bed Bug Exterminator Relationship Specialty Start Date End Date Hanane Childers APRN, C.N.P., D.N.P. [address] [place] [phone] PCP - General Family Medicine 10/19/19 documented as of this encounter
[2024-06-08 21:51] VITALS: BP 127/72; PULSE 70; RESP 16; O2SAT 98
== END 2024-06-08 22:26 | disposition home or self-care (01) ==
PROVIDERS: Emergency Provider Family Medicine
DX: S02.2XXA Fracture of nasal bones, initial encounter for closed fracture (principal); S80.212A Abrasion, left knee, initial encounter; S60.512A Abrasion of left hand, initial encounter; W18.09XA Striking against other object with subsequent fall, initial encounter; Y93.K1 Activity, walking an animal
CPT/HCPCS: 70450; 70486; 99283; 99284; 99285; A9270

== ENCOUNTER 2024-06-19 10:03 | Day surgery (SDC) | payer OTHER, SELFPAY ==
[2024-06-19] VITALS (11 sets, daily range): BP systolic 108–134; BP diastolic 66–89; PULSE 73–97; RESP 16; TEMP 36.3–36.5; O2SAT 94–99; BMI 30.9
[2024-06-19] MEDS: 0.9 % SODIUM CHLORIDE 500 ML 500 ML 100 ML IV (10:00)
[2024-06-19] MEDS: SODIUM CHLORIDE 0.9 % (FLUSH) 10 ML SYRINGE IVF (10:49)
[2024-06-19] MEDS: OXYMETAZOLINE 0.05% NASAL SPRAY 2 SPRAY NOSTRIL-B (12:00)
[2024-06-19] MEDS: COCAINE HCL 4 % 4 ML SOLUTION NOSTRIL-B (12:30)
[2024-06-19] MEDS: MUPIROCIN 1 GM PACKET 1 APPLIC TOPICAL (12:41)
--- NOTE | 2024-06-19 12:54 | P.ANES_ITS ---
Anesthesia Charges Start Date/Time Anesthesia Start Date: 06/19/24 Anesthesia Start Time: 12:21 Stop Date/Time Anesthesia Stop Date: 06/19/24 Anesthesia Stop Time: 12:54 Coding CPT Codes CPT Codes: ANESTH NOSE/SINUS SURGERY - 52270 ([id number]) P2 - PATIENT W/MILD SYST DISEASE, QZ - GROUNDS KEEPER SVC W/O TRACK AND FIELD COACH BY
--- NOTE | 2024-06-19 12:54 | W.ANESCHARGE ---
Anesthesia Charges Start Date/Time Anesthesia Start Date: 06/19/24 Anesthesia Start Time: 12:21 Stop Date/Time Anesthesia Stop Date: 06/19/24 Anesthesia Stop Time: 12:54 Coding CPT Codes CPT Codes: ANESTH NOSE/SINUS SURGERY - 08474 ([id number]) P2 - PATIENT W/MILD SYST DISEASE, QZ - MACHINE CASTINGS PLASTERER SVC W/O FIELD ATTENDANT BY
[2024-06-19] MEDS: fentaNYL 100 MCG/2 ML inj 50 MCG IVP (13:01)
[2024-06-19] MEDS: METOCLOPRAMIDE HCL 5 MG/ML INJ 10 MG IVP (13:25)
--- NOTE | 2024-06-19 13:28 | W.PM.ENTPROC ---
Procedure Note Date of procedure: 06/19/24 Procedure: Preop diagnosis depressed left nasal fracture Postoperative diagnosis same Procedure close reduction nasal fracture Under general endotracheal anesthesia patient was prepped draped usual fashion. The nose was decongested with cocaine pledgets. The fracture was identified externally on the left side by palpation. The for this with the fracture elevator was marked to this location and then the fracture elevated without difficulty. A Merocel pack was placed beneath the pack. Additionally the speculum was open at which medialized the septum from left to midline. An external dressing consisting of benzoin and Steri tape was applied. The patient procedure well was taken recovery in satisfactory condition. Blood loss was less than 5 mL Surgeon: Ja Mondragon MD
[2024-06-19] MEDS: ACETAMINOPHEN 325 MG TABLET PO (14:00)
== END 2024-06-19 14:43 | disposition home or self-care (01) ==
LOC: OR 10:05
PROVIDERS: PCP Physician Assistant Medical; Visit Provider Otolaryngology
PROC: 0NSBXZZ Reposition Nasal Bone, External Approach (ICD-10-PCS; CPT 21315; principal; 2024-06-19 11:30)
DX: S02.2XXA Fracture of nasal bones, initial encounter for closed fracture (principal)
CPT/HCPCS: 21315; 00160; A9270; J0330; J1100; J2405; J2704; J2765; J3010; J7030

== ENCOUNTER 2024-08-26 11:16 | Outpatient (CLI) | payer OTHER, SELFPAY | END 2024-08-26 11:17 | disposition home or self-care (01) | PROVIDERS: PCP Physician Assistant Medical; Visit Provider Physician Assistant Medical | DX: R74.8 Abnormal levels of other serum enzymes (principal); M79.674 Pain in right toe(s) | CPT/HCPCS: 80076; 84550 ==

== ENCOUNTER 2025-01-07 11:04 | Outpatient (CLI) | payer OTHER, SELFPAY | END 2025-01-07 11:05 | disposition home or self-care (01) | LOC: LKVREF 11:05 | PROVIDERS: PCP Physician Assistant Medical; Visit Provider Physician Assistant Medical | DX: R79.89 Other specified abnormal findings of blood chemistry (principal) | CPT/HCPCS: 80076 ==